=== PATIENT | male | born 1935 | race African-American/Black ===

== ENCOUNTER 2016-10-27 23:31 | Inpatient (IN) | payer MEDICARE, OTHER ==
[~2016-10-27] VITALS: Ht 182.9 cm; Wt 69.9 kg
[~2016-10-27 23:31] MED LIST: ATOR10TA; VIC
[2016-10-28] MEDS ORDERED: MORPHINE SULFATE 4 MG/ML CPJ (NOT FOR IM USE) IV STA (00:07)
[2016-10-28] MEDS ORDERED: ONDANSETRON HCL 4MG/2ML VIAL IV STA (00:07)
[2016-10-28] MEDS ORDERED: VANCOMYCIN 1 G PREMIX 200 ML IV ONE (00:15)
[2016-10-28] MEDS ORDERED: LEVOFLOXACIN 750MG PREMIX 150 ML IV ONE (00:15)
[2016-10-28] MEDS ORDERED: CLINDAMYCIN 600 MG in DEXTROSE 5% WATER 50 ML IV ONE (00:15)
[2016-10-28 00:56] LABS: HEMATOCRIT. 35.6 % (42.0-52.0); HEMOGLOBIN. 11.3 g/dL (14.0-18.0); MEAN CORPUSCULAR HEMOGLOBIN 25.7 pg (28.0-32.0); MEAN CORPUSCULAR HGB CONC 31.8 g/dL (31.0-37.0); MEAN CORPUSCULAR VOLUME 80.8 fL (80.0-94.0); MEAN PLATELET VOLUME 8.5 fl (7.4-10.4); PLATELET 165 x1000/uL (130-400); RED CELL DISTRIBUTION WIDTH 18.1 % (11.6-14.6); WHITE BLOOD COUNT 8.7 x1000/uL (4.5-11.0)
[2016-10-28 00:58] LABS: DIFFERENTIAL COMMENT 1
[2016-10-28 01:03] LABS: CHLORIDE 100 mEq/L (98-107); INDEX HEMOLYSI 1 (1-3); INDEX ICTERIC 1 (1-4); INDEX LIPEMIC 1 (1-3); INR 1.3; PROTHROMBIN TIME 13.9 sec
[2016-10-28 01:11] LABS: ALANINE AMINOTRANSFERASE 11 IU/L (13-61); ALBUMIN 2.4 g/dL (3.4-5.0); ANION GAP 18; CALCIUM 8.4 mg/dL (8.5-10.1); CARBON DIOXIDE 26 mEq/L (21-32); CREATINE KINASE 32 IU/L (39-308); UREA NITROGEN BLOOD 42 mg/dL (7-21); eGFR 11 mL/min (>60)
[2016-10-28] MEDS ORDERED: VANCOMYCIN 1 G PREMIX 200 ML IV SCH (02:00)
[2016-10-28] MEDS ORDERED: MAGNESIUM/ALUMINUM HYDROXIDE/SIMETHICONE 30ML UDC PO PRN (02:00)
[2016-10-28] MEDS ORDERED: DIPHENHYDRAMINE 50MG/ML VIAL IV PRN (02:00)
[2016-10-28] MEDS ORDERED: ONDANSETRON HCL 4MG/2ML VIAL IV PRN (02:00)
[2016-10-28] MEDS ORDERED: CLONIDINE 0.1MG TABLET PO PRN (02:00)
[2016-10-28 02:36] LABS: PLATELET ESTIMATE NORMAL
[2016-10-28] MEDS ORDERED: MORPHINE SULFATE 2 MG/ML CPJ (NOT FOR IM USE) IV NR (02:45)
[2016-10-28] MEDS ORDERED: MORPHINE SULFATE 4 MG/ML CPJ (NOT FOR IM USE) IV PRN (02:45)
[2016-10-28] MEDS ORDERED: SORBITOL 70% SOLN 30ML PO PRN (02:45)
[2016-10-28] MEDS ORDERED: ZOLPIDEM TARTRATE 5MG TABLET PO PRN (02:45)
[2016-10-28 09:30] VITALS: BP 107/64
[2016-10-28] MEDS: DOCUSATE SODIUM 100MG CAPSULE PO SCH ×2 (11:27→18:09)
[2016-10-28] MEDS: SEVELAMER CARBONATE 800 MG TABLET PO SCH ×3 (11:28→18:26)
[2016-10-28] MEDS: HYDROMORPHONE HCL/PF 2MG/ML CPJ IV PRN ×2 (11:31→14:25)
[2016-10-28 12:00] VITALS: BP 104/61
[2016-10-28] MEDS ORDERED: ONDANSETRON INJ IV PRN (13:30)
[2016-10-28] MEDS ORDERED: NALOXONE INJ IV PRN (13:30)
[2016-10-28] MEDS: SODIUM CHLORIDE 0.9% INJ 3ML FLUSH IVF SCH ×2 (14:23→22:08)
[2016-10-28] MEDS ORDERED: HYDROMORPHONE PCA 10MG/50ML IV PRN (15:00)
[2016-10-28 15:43] LABS: BASOPHILS % 0.3 % (0.0-2.0); DIFFERENTIAL COMMENT 0; EOSINOPHILS % 0.5 % (0.0-5.0); LYMPHOCYTES % 7.2 % (20.0-50.0); MEAN CORPUSCULAR HEMOGLOBIN 25.5 pg (28.0-32.0); MEAN CORPUSCULAR HGB CONC 32.2 g/dL (31.0-37.0); MEAN CORPUSCULAR VOLUME 79.1 fL (80.0-94.0); MEAN PLATELET VOLUME 8.4 fl (7.4-10.4); MONOCYTES % 4.3 % (2.0-8.0); NEUTROPHILS % 87.7 % (40.0-76.0); PLATELET 158 x1000/uL (130-400); RED BLOOD CELL COUNT 3.92 mill/uL (4.7-6.1); RED CELL DISTRIBUTION WIDTH 18.2 % (11.6-14.6); WHITE BLOOD COUNT 9.1 x1000/uL (4.5-11.0)
[2016-10-28 15:45] LABS: INR 1.4; PARTIAL THROMBOPLASTIN TIME 30.3 sec (24.0-34.0); PROTHROMBIN TIME 14.3 sec
[2016-10-28 15:55] LABS: CHLORIDE 100 mEq/L (98-107); INDEX HEMOLYSI 1 (1-3); INDEX ICTERIC 1 (1-4); INDEX LIPEMIC 1 (1-3)
[2016-10-28 16:00] VITALS: BP 94/58
[2016-10-28 16:05] LABS: ALANINE AMINOTRANSFERASE 8 IU/L (13-61); ALBUMIN 1.9 g/dL (3.4-5.0); ANION GAP 16; CALCIUM 7.7 mg/dL (8.5-10.1); CARBON DIOXIDE 27 mEq/L (21-32); LIPASE 103 IU/L (73-393); UREA NITROGEN BLOOD 40 mg/dL (7-21); eGFR 12 mL/min (>60)
[2016-10-28] MEDS ORDERED: VANCOMYCIN 750 MG PREMIX 150 ML IV SCH (18:00)
[2016-10-28 20:00] VITALS: BP 91/50
[2016-10-28] MEDS ORDERED: SEVE800T8 PO (20:56)
[2016-10-28] MEDS ORDERED: ACET-2178 PO (21:05)
[2016-10-28] MEDS ORDERED: CINA30 PO (21:05)
[2016-10-28] MEDS ORDERED: CHOL500010 PO (21:05)
[2016-10-28] MEDS ORDERED: PROP80CA2 PO (21:05)
[2016-10-28] MEDS ORDERED: CARV3.1242 PO (21:05)
[2016-10-28] MEDS ORDERED: [UNRECOGNIZED DRUG - CODE] (21:10)
[2016-10-28] MEDS ORDERED: ZINC SULFATE PO (21:10)
[2016-10-29] VITALS: BP 96/58
[2016-10-29 04:00] VITALS: BP 105/66
[2016-10-29 06:30] LABS: HEMATOCRIT. 33.3 % (42.0-52.0); HEMOGLOBIN. 10.7 g/dL (14.0-18.0); MEAN CORPUSCULAR HEMOGLOBIN 25.5 pg (28.0-32.0); MEAN CORPUSCULAR VOLUME 79.8 fL (80.0-94.0); MEAN PLATELET VOLUME 8.3 fl (7.4-10.4); PLATELET 124 x1000/uL (130-400); RED BLOOD CELL COUNT 4.17 mill/uL (4.7-6.1); RED CELL DISTRIBUTION WIDTH 18.1 % (11.6-14.6); WHITE BLOOD COUNT 8.5 x1000/uL (4.5-11.0)
[2016-10-29 07:44] LABS: ALANINE AMINOTRANSFERASE 9 IU/L (13-61); ALBUMIN 2.1 g/dL (3.4-5.0); ANION GAP 16; CARBON DIOXIDE 29 mEq/L (21-32); CHLORIDE 98 mEq/L (98-107); INDEX HEMOLYSI 1 (1-3); INDEX ICTERIC 1 (1-4); INDEX LIPEMIC 1 (1-3); MAGNESIUM 2.2 mg/dL (1.8-2.4); PHOSPHORUS 2.6 mg/dL (2.5-4.9); UREA NITROGEN BLOOD 25 mg/dL (7-21); eGFR 16 mL/min (>60)
[2016-10-29 08:00] VITALS: BP 100/56
[2016-10-29 08:30] LABS: DIFFERENTIAL COMMENT 1
[2016-10-29] MEDS: DOCUSATE SODIUM 100MG CAPSULE PO SCH ×2 (08:59→18:35)
[2016-10-29] MEDS: SEVELAMER CARBONATE 800 MG TABLET PO SCH (08:59)
[2016-10-29] MEDS: ACETAMINOPHEN 325MG TABLET PO PRN ×2 (08:59→23:43)
[2016-10-29] MEDS ORDERED: HYDROCODONE/ACETAMINOPHEN 5/325MG TABLET PO PRN (09:30)
[2016-10-29 12:00] VITALS: BP 90/50
[2016-10-29 16:00] VITALS: BP 94/58
[2016-10-29 16:39] LABS: PLATELET ESTIMATE DECREASED
[2016-10-29] MEDS: SODIUM CHLORIDE 0.9% INJ 3ML FLUSH IVF SCH ×3 (18:35→23:41)
[2016-10-29 20:00] VITALS: BP 93/53
[2016-10-30] VITALS (7 sets, daily range): BP systolic 88–104; BP diastolic 55–62
[2016-10-30 06:55] LABS: HEMATOCRIT. 30.4 % (42.0-52.0); HEMOGLOBIN. 9.8 g/dL (14.0-18.0); MEAN CORPUSCULAR HEMOGLOBIN 25.7 pg (28.0-32.0); MEAN CORPUSCULAR HGB CONC 32.2 g/dL (31.0-37.0); MEAN PLATELET VOLUME 8.8 fl (7.4-10.4); PLATELET 112 x1000/uL (130-400); RED BLOOD CELL COUNT 3.81 mill/uL (4.7-6.1); RED CELL DISTRIBUTION WIDTH 18.3 % (11.6-14.6); WHITE BLOOD COUNT 8.3 x1000/uL (4.5-11.0)
[2016-10-30] MEDS: SODIUM CHLORIDE 0.9% INJ 3ML FLUSH IVF SCH ×3 (06:59→23:15)
[2016-10-30 07:29] LABS: DIFFERENTIAL COMMENT 1
[2016-10-30 07:55] LABS: CALCIUM 8.4 mg/dL (8.5-10.1)
[2016-10-30 07:56] LABS: PHOSPHORUS 2.9 mg/dL (2.5-4.9)
[2016-10-30] MEDS: DOCUSATE SODIUM 100MG CAPSULE PO SCH ×2 (10:10→16:52)
[2016-10-30] MEDS: FOLIC ACID/VITAMIN B COMP W-C TABLET PO SCH (10:10)
[2016-10-30 11:05] LABS: HYPOCHROMASIA 1+
[2016-10-30 11:06] LABS: ANISOCYTOSIS 1+
[2016-10-30 11:07] LABS: PLATELET ESTIMATE SLIGHTLY DECREASED
[2016-10-30] MEDS ORDERED: HYDROCODONE/ACETAMINOPHEN 10/325MG TABLET PO PRN (11:15)
[2016-10-30] MEDS: MORPHINE SULFATE 15MG TABLET SR PO SCH ×2 (12:00→21:00)
[2016-10-30] MEDS: ACETAMINOPHEN 325MG TABLET PO PRN ×2 (13:43→23:30)
[2016-10-30] MEDS: SULFAMETHOXAZOLE/TRIMETHOPRIM 800/160MG TABLET PO SCH (15:02)
[2016-10-30] MEDS ORDERED: VANCOMYCIN 750 MG PREMIX 150 ML IV NR (18:00)
[2016-10-31 04:19] VITALS: BP 107/65
[2016-10-31] MEDS: SODIUM CHLORIDE 0.9% INJ 3ML FLUSH IVF SCH ×2 (06:47→13:22)
[2016-10-31 08:00] VITALS: BP 103/63
[2016-10-31] MEDS: MORPHINE SULFATE 15MG TABLET SR PO SCH (09:00)
[2016-10-31] MEDS: SULFAMETHOXAZOLE/TRIMETHOPRIM 800/160MG TABLET PO SCH (09:00)
[2016-10-31] MEDS: FOLIC ACID/VITAMIN B COMP W-C TABLET PO SCH (09:00)
[2016-10-31] MEDS: DOCUSATE SODIUM 100MG CAPSULE PO SCH ×2 (09:00→17:03)
[2016-10-31] MEDS: ACETAMINOPHEN 325MG TABLET PO PRN ×2 (09:11→13:22)
[2016-10-31 12:00] VITALS: BP 103/58
[2016-10-31 15:25] VITALS: BP 103/58
[2016-10-31 16:00] VITALS: BP 101/60
[2016-10-31 19:32] VITALS: BP 100/61
== END 2016-10-31 19:45 | disposition hospice, home (50) | DRG 299 ==
LOC: ER 23:42 → 6EST 10-28 01:54
PROVIDERS: ADMIT Internal Medicine; ATTEND Internal Medicine
PROC: 5A1D00Z (ICD-10-PCS; principal; 2016-10-28)
DX: I73.9 Peripheral vascular disease, unspecified (principal); E43 Unspecified severe protein-calorie malnutrition; N18.6 End stage renal disease; I12.0 Hypertensive chronic kidney disease with stage 5 chronic kidney disease or end stage renal disease; L03.116 Cellulitis of left lower limb; D64.9 Anemia, unspecified; E78.00 Pure hypercholesterolemia, unspecified; E78.5 Hyperlipidemia, unspecified; I99.8 Other disorder of circulatory system; S91.302A Unspecified open wound, left foot, initial encounter; Z51.5 Encounter for palliative care; Z66 Do not resuscitate; Z99.2 Dependence on renal dialysis; Z79.899 Other long term (current) drug therapy; Z88.0 Allergy status to penicillin; Z89.511 Acquired absence of right leg below knee; Z68.20 Body mass index [BMI] 20.0-20.9, adult; Z87.442 Personal history of urinary calculi; Z80.9 Family history of malignant neoplasm, unspecified; Z82.49 Family history of ischemic heart disease and other diseases of the circulatory system; Z83.3 Family history of diabetes mellitus
CPT/HCPCS: 36415; 73590; 80048; 80053; 82550; 82962; 83605; 83690; 83735; 84100; 85025; 85610; 85730; 87040; 87070; 87077; 87186; 87205; 93971; 96365; 96366; 96367; 96375; 96376; 99285; J1170; J1956; J2270; J2405; J3370; J3490; J7030; J7040; J7050; J7060

== ENCOUNTER 2016-11-07 19:27 | Emergency (ER) | payer OTHER ==
[~2016-11-07] VITALS: Ht 182.9 cm; Wt 59.0 kg
[~2016-11-07 19:27] MED LIST changes: +ACET-2178 PO; +CARV3.1242 PO; +CHOL500010 PO; +CINA30 PO; +PROP80CA2 PO; +SEVE800T8 PO; +ZINC SULFATE PO
[2016-11-07 19:36] VITALS: BP 0/0
== END 2016-11-07 21:00 | disposition expired ==
LOC: ER 19:28
DX: I46.9 Cardiac arrest, cause unspecified (principal); I10 Essential (primary) hypertension; N18.6 End stage renal disease; Z99.2 Dependence on renal dialysis; Z88.0 Allergy status to penicillin
CPT/HCPCS: 99285